=== PATIENT | female | born 1980 | race Caucasian/White ===

== ENCOUNTER → 2021-09-08 16:43 | Outpatient (CLI) | payer OTHER, SELFPAY ==
--- NOTE | 2021-09-08 16:51 | DI.RAD.S_ITS ---
PROCEDURE: XR HAND RT MIN 3V INDICATIONS: RIGHT SECOND FINGER /DEFORMING TECHNIQUE: 3 views of the hand(s) acquired. COMPARISON: None. FINDINGS: Bones: No fractures or dislocations. Carpal bones are normally aligned. No suspicious bony lesions. 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 Soft tissues: No suspicious soft tissue calcifications. 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 Dictated by: Aria Ojeda MD, PhD on 09/08/2021 at 20:52 Approved by: Aria Ojeda MD, PhD on 09/08/2021 at 20:53
== END ==
PROVIDERS: Referring Provider Physician Assistant; Visit Provider Physician Assistant
DX: M19.041 Primary osteoarthritis, right hand (principal); S69.91XS Unspecified injury of right wrist, hand and finger(s), sequela; M79.644 Pain in right finger(s)
CPT/HCPCS: 73130